=== PATIENT | female | born 1975 | race Caucasian/White ===

== ENCOUNTER → 2024-05-05 12:39 | Outpatient (REF) | payer OTHER, SELFPAY | LOC: PAVMRI 12:39 | PROVIDERS: ATTENDING PHYSICIAN Physician Assistant Medical | DX: R41.3 Other amnesia (principal) | CPT/HCPCS: 70553; A9575 ==

== ENCOUNTER → 2024-11-28 11:53 | Outpatient (REF) | payer OTHER, SELFPAY | LOC: WDC 11:53 | PROVIDERS: ATTENDING PHYSICIAN Physician Assistant Medical | DX: Z12.31 Encounter for screening mammogram for malignant neoplasm of breast (principal) | CPT/HCPCS: 77063; 77067 ==

== ENCOUNTER → 2025-01-15 15:14 | Outpatient (REF) | payer OTHER, SELFPAY | LOC: MRI 15:14 | PROVIDERS: ATTENDING PHYSICIAN Internal Medicine Gastroenterology; FAMILY PHYSICIAN Physician Assistant Medical | DX: K76.0 Fatty (change of) liver, not elsewhere classified (principal) | CPT/HCPCS: 74183; 76391; A9575 ==